=== PATIENT | male | born 1975 | race American Indian/Alaskan Native ===

== ENCOUNTER 2016-07-31 16:44 | Emergency (ER) | payer OTHER ==
[2016-07-31 16:59] VITALS: BP 116/72
== END 2016-07-31 20:13 | disposition left against medical advice (07) ==
LOC: ED 16:44
DX: M54.5 Low back pain (principal); M25.512 Pain in left shoulder; Z53.21 Procedure and treatment not carried out due to patient leaving prior to being seen by health care provider

== ENCOUNTER 2016-09-17 14:17 | Emergency (ER) | payer SELFPAY ==
[2016-09-17] MEDS ORDERED: NEURONTIN PO ONE (21:36)
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
[2016-09-17 21:54] VITALS: BP 153/92
== END 2016-09-17 21:47 | disposition home or self-care (01) ==
LOC: ED 14:17
DX: M54.16 Radiculopathy, lumbar region (principal); M54.30 Sciatica, unspecified side; M79.604 Pain in right leg; R20.2 Paresthesia of skin; F12.10 Cannabis abuse, uncomplicated; F17.200 Nicotine dependence, unspecified, uncomplicated; Z21 Asymptomatic human immunodeficiency virus [HIV] infection status
CPT/HCPCS: 99282